=== PATIENT | female | born 1955 | race Caucasian/White ===

== ENCOUNTER 2018-10-28 11:29 | Emergency (ER) | payer OTHER ==
[~2018-10-28] VITALS: Ht 149.9 cm; Wt 57.2 kg
[2018-10-28 11:32] VITALS: BP 132/92; Ht 149.9 cm; Wt 57.2 kg
== END 2018-10-28 12:39 | disposition home or self-care (01) ==
LOC: ED 11:29
DX: S13.4XXA Sprain of ligaments of cervical spine, initial encounter (principal); M25.511 Pain in right shoulder; I10 Essential (primary) hypertension; Z95.818 Presence of other cardiac implants and grafts; Z98.890 Other specified postprocedural states; Z79.899 Other long term (current) drug therapy; Z79.01 Long term (current) use of anticoagulants; X58.XXXA Exposure to other specified factors, initial encounter; Y93.89 Activity, other specified; Y92.89 Other specified places as the place of occurrence of the external cause; Y99.8 Other external cause status